=== PATIENT | female | born 1940 | race Caucasian/White ===

== ENCOUNTER → 2018-06-29 | Outpatient (CLI) | payer MEDICARE ==
[~2018-06-29] MED LIST: ASPIR 8181 MG PO; ATENOLOL-CHLOR1 EAC1 PO; GLIMEPIRIDE4 MG PO; LANSOPRAZOLE PO; LOVASTATIN40 MG PO; METFORMIN HCL1000 MG PO; PIOGLITAZONE30 MG PO; TYLENOL WITH C1 EACH PO
== END ==
LOC: RAD 09:28
PROVIDERS: ATTEND Internal Medicine
DX: R06.00 Dyspnea, unspecified (principal)
CPT/HCPCS: 93306

== ENCOUNTER → 2018-12-31 | Day surgery (SDC) | payer MEDICARE ==
[2018-12-30 13:20] LABS: BASOPHILS # (AUTO) 0.1 (0.0-0.1); BASOPHILS % 0.7 % (0.0-1.0); EOSINOPHILS # (AUTO) 0.2 (0.0-0.4); EOSINOPHILS % 2.3 % (0.0-6.0); HEMATOCRIT 45.5 % (34.2-44.1); HEMOGLOBIN 14.8 g/dL (12.0-16.0); LYMPHOCYTES # (AUTO) 3.2 (1.0-3.2); LYMPHOCYTES % 33.2 % (18.0-39.1); MEAN CORPUSCULAR HEMOGLOBIN 29.7 pg (28-32); MEAN CORPUSCULAR HGB CONC 32.5 g/dL (31-35); MEAN CORPUSCULAR VOLUME 91.2 fL (81-99); MONOCYTES # (AUTO) 0.9 (0.2-0.8); NEUTROPHILS # (AUTO) 5.2 (2.1-6.9); NEUTROPHILS % 54.4 % (38.7-80.0); PLATELET COUNT 323 x10e3/uL (140-360); RED BLOOD COUNT 4.99 x10e6/uL (3.6-5.1); RED CELL DISTRIBUTION WIDTH 13.8 % (11.7-14.4)
[~2018-12-31] MED LIST changes: +B COMPLEX1 EACH PO; +CRANBERRY200 MG PO; +DEXAMETHASONE SOD PHOS 10 MG/1 ML VIAL ONE; +FENTANYL CITRATE/PF 100MCG/2 ML INJ ONE; +FISH OIL 1,0001 EAC2 PO; +GABAPENTIN100 MG PO; +IOPAMIDOL 200 MG/ML 20 ML VIAL IT ONE; +LIDOCAINE HCL 1% 30ML-PF VIAL ONE; +LIDOCAINE HCL 2% LOCAL INJ 5 ML SDV VIAL INJ ONE; +MIDAZOLAM HCL 2 MG/2 ML VIAL ONE; +MULTIVITAMINS1 EAC7 PO; +PROPOFOL IV EMULSION 10 MG/ML 20 ML VIAL ONE
--- OUTSIDE RECORDS SUMMARY | 2018-12-31 05:29 | XMS REPORT | Continuity of Care Document ---
Author Author [facility] Organization [facility] Address [address] [place] [address] ;ext= Care Team Providers Care Websphere Portal Architect Name Role Phone ANTON JOHNSON Admphys ANTON JOHNSON Attphys Hospital Admission Diagnosis Code Admission Diagnosis Date Pleuritic pain Social History Element Description Code Description Smoking Status Code System Start Date End Date Smoking Status [id number] Never smoker SNOMED-CT Problems * No data in the system Medications RxNorm Medication Dose Route Instructions Indications Start Date End Date Status 188679 Acetaminophen 300 MG / Codeine Phosphate 30 MG Oral Tablet 1 tablet Oral orally every 4 to 6 hours as needed. pain Active Allergies Code Code System Allergy Substance Type Reaction Severity Start Date End Date Status RXNorm NKA Drug allergy Unknown Active Results Radiology Results Order: [id number] XR RIBS UNILATERAL/ PA CHEST* Exam Completion Date:01/28/2018 22:22 Procedure: XR HAND MIN 3VWS-left, XR RIBS UNILATERAL/ PA CHEST Order Balaji e: 01/28/2018 10:22 PMOrdering Provider: ZHOU Duinical Indication: C HEST PAIN: Pain-Chestfall. Left hand painComparison: None Findings: There is no displaced rib fracture. Lung volumes are low and there is mildbibasilar subsegme ntal atelectasis. No large pleural effusion is present. Nopneumothorax. Radiogra phs of the left hand demonstrate severe thumb CMC and triscaphe jointspace narro wing and degenerative spurring. Exym-dc-wvfzdnrp interphalangealjoint space narr owing is present. No definite acute fracture or focal osseousstructures is seen. IMPRESSION:No displaced rib fracture. 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 This final report was electronically signed by Dr Gavin Rodriguez MD 01/29/20186:2 6 AMDictated By: Molly RODRIGUEZ: 01/29/2018 06:32 Order: [id number] XR HAND MIN 3VWS* Exam Completion Date:01/28/2018 22:22 Procedure: XR HAND MIN 3VWS-left, XR RIBS UNILATERAL/ PA CHEST Order Balaji e: 01/28/2018 10:22 PMOrdering Provider: ZHOU Duinical Indication: C HEST PAIN: Pain-Chestfall. Left hand painComparison: None Findings: There is no displaced rib fracture. Lung volumes are low and there is mildbibasilar subsegme ntal atelectasis. No large pleural effusion is present. Nopneumothorax. Radiogra phs of the left hand demonstrate severe thumb CMC and triscaphe jointspace narro wing and degenerative spurring. Liph-li-wzgbzmff interphalangealjoint space narr owing is present. No definite acute fracture or focal osseousstructures is seen. IMPRESSION:No displaced rib fracture. 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 This final report was electronically signed by Dr Gavin Rodriguez MD 01/29/20186:2 6 AMDictated By: Molly RODRIGUEZ: 01/29/2018 06:32 Vital Signs Vitals Value Date BP Systolic 132 mmHg 01/28/2018 BP Diastolic 74 mmHg 01/28/2018 Respiratory Rate 18 01/28/2018 O2% BldC Oximetry 96 01/28/2018 Body Temperature 97 F 01/28/2018 Height 64 in 01/28/2018 Weight Measured 195 lbs 01/28/2018 BSA (Body Surface Area) 1.76875 01/28/2018 BMI (Body Mass Index) 33.7 01/28/2018 Plan of Care * No data in the system Procedures Code Code System Procedure Name Target Site Date of Procedure XR RIBS UNILATERAL/ PA CHEST 01/29/2018 06:32 Encounters Date Code Diagnosis Status (ICD10) - [id number] MX FX RIBS RT SIDE INITIAL CLOS FX Active Immunizations * No data in the system Functional Status * No data in the system Hospital Discharge Instructions * No data in the system
--- OUTSIDE RECORDS SUMMARY | 2018-12-31 05:29 | XMS REPORT ---
Author Author [facility] Address Unknown Phone Unavailable Care Team Providers Care Confidential Investigator Name Role Phone ARNOL JOHNSON Unavailable Unavailable Problems This patient has no known problems. Allergies, Adverse Reactions, Alerts This patient has no known allergies or adverse reactions. Medications This patient has no known medications. Results Test Description Test Time Test Comments Text Results Atomic Results Result Comments XR RIBS UNILATERAL/ PA CHEST 2018-01-29 06:32:42 Procedure: XR HAND MIN 3VWS- left, XR RIBS UNILATERAL/ PA CHESTOrder Date: 01/28/2018 10:22 PMOrdering Provider: ZHOU Duinical Indication: CHEST PAIN: Pain-Chestfall. Left hand painComparison: NoneFindings:There is no displaced rib fracture. Lung volumes are low and there is mildbibasilar subsegmental atelectasis. No large pleural effusion is present. Nopneumothorax.Radiographs of the left hand demonstrate severe thumb CMC and triscaphe jointspace narrowing and degenerative spurring. Blkv-qf-nvhkppid interphalangealjoint space narrowing is present. No definite acute fracture or focal osseousstructures is seen.IMPRESSION:No displaced rib fracture. 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 Left hand painComparison: NoneFindings:There is no displaced rib fracture. Lung volumes are low and there is mildbibasilar subsegmental atelectasis. No large pleural effusion is present. Nopneumothorax.Radiographs of the left hand demonstrate severe thumb CMC and triscaphe jointspace narrowing and degenerative spurring. Gmlr-bu-tfajvrlf interphalangealjoint space narrowing is present. No definite acute fracture or focal osseousstructures is seen.IMPRESSION:No displaced rib fracture. 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
[2018-12-31 08:15] VITALS: BP 178/80
== END | disposition home or self-care (01) ==
LOC: OR 05:26
PROVIDERS: ATTEND Physical Medicine & Rehabilitation Pain Medicine
DX: M47.26 Other spondylosis with radiculopathy, lumbar region (principal); M46.1 Sacroiliitis, not elsewhere classified; M25.512 Pain in left shoulder; G56.03 Carpal tunnel syndrome, bilateral upper limbs; E11.9 Type 2 diabetes mellitus without complications; I10 Essential (primary) hypertension; R00.1 Bradycardia, unspecified; K21.9 Gastro-esophageal reflux disease without esophagitis; Z01.810 Encounter for preprocedural cardiovascular examination; Z01.812 Encounter for preprocedural laboratory examination; Z79.84 Long term (current) use of oral hypoglycemic drugs; Z79.82 Long term (current) use of aspirin; Z91.81 History of falling
CPT/HCPCS: 36415; 64483; 64484 ×2; 85025; 93005; J1100; J2001 ×2; J2250; J2704; Q9967; 77003

== ENCOUNTER → 2019-10-28 | Outpatient (CLI) | payer MEDICARE ==
[~2019-10-28] MED LIST changes: -DEXAMETHASONE SOD PHOS 10 MG/1 ML VIAL ONE; -FENTANYL CITRATE/PF 100MCG/2 ML INJ ONE; -IOPAMIDOL 200 MG/ML 20 ML VIAL IT ONE; -LIDOCAINE HCL 1% 30ML-PF VIAL ONE; -LIDOCAINE HCL 2% LOCAL INJ 5 ML SDV VIAL INJ ONE; -MIDAZOLAM HCL 2 MG/2 ML VIAL ONE; -PROPOFOL IV EMULSION 10 MG/ML 20 ML VIAL ONE
--- NOTE | 2019-10-28 12:48 | Diagnostic Imaging Report ---
MRI SPINE LUMBAR WO HISTORY: Low back pain COMPARISON: MRI of the lumbar spine 03/07/2017 TECHNIQUE: Sagittal T1, sagittal T2, sagittal STIR, axial T2, coronal T2, and axial proton density weighted images of the lumbar spine were obtained without contrast. DISCUSSION: Number of non-rib bearing lumbar vertebral bodies: 5. Alignment: Normal lordosis. Thoracolumbar levoscoliosis is centered at L2. Vertebrae: No fractures, or neoplasm. Conus medullaris: Normal, ends at L2. Cauda equina: There is cauda equina effacement at L3-L4. Otherwise, no masses or arachnoiditis. Posterior paraspinal muscles: Posterior incision signal changes are present. There is paraspinal muscle atrophy at the lumbosacral junction. Soft tissues: Colonic diverticulosis is partially imaged. Multilevel advanced disc degeneration is present. There are nonspecific inflammatory endplate changes at L3-L4. T10-T11: At least moderate canal stenosis due to disc bulge and ligamentum flavum thickening with indentation of the cord. No significant foraminal stenosis. T11-T12: Disc bulge without significant canal or foraminal stenosis. T12-L1: Mild to moderate canal stenosis due to disc bulge and ligamentum flavum thickening. Mild right foraminal stenosis due to disc bulge and facet arthrosis. No significant left foraminal stenosis. L1-L2: Mild to moderate canal stenosis due to disc bulge and ligamentum flavum thickening. Moderate right foraminal stenosis due to disc bulge and facet arthrosis. L2-L3: Moderate canal stenosis due to disc bulge and ligamentum flavum thickening is accentuated by epidural lipomatosis. Moderate right and mild left foraminal stenoses due to disc bulge and facet arthrosis. L3-L4: Grade 1 anterolisthesis of L3 on L4 due to facet arthrosis. Severe canal stenosis due to uncovered disc bulge and ligamentum flavum thickening. Moderate to severe right and mild to moderate left foraminal stenoses due to uncovered disc bulge and facet arthrosis. L4-L5: Grade 1 anterolisthesis of L4 on L5 facet arthrosis. Laminectomy changes without significant central canal stenosis. Mild right and severe left foraminal stenoses due to uncovered disc bulge and facet arthrosis. L5-S1: Mild right and moderate left foraminal stenoses due to disc bulge and facet arthrosis. No significant canal stenosis. IMPRESSION: 1. Slightly progressed multilevel advanced disc degeneration with nonspecific inflammatory endplate changes at L3-L4 and thoracolumbar levoscoliosis. 2. Grade 1 anterolisthesis of L3 on L4 and L4 on L5 due to facet arthrosis. 3. 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 4. Multilevel degenerative foraminal stenoses - moderate to severe on the right at L3-L4 and severe on the left at L4-L5. Signed by: Dr. Abdias Baer M.D. on 10/28/2019 12:44 PM
== END ==
LOC: MRI 07:24
PROVIDERS: ATTEND Physical Medicine & Rehabilitation Pain Medicine
DX: M54.5 Low back pain (principal); M54.16 Radiculopathy, lumbar region
CPT/HCPCS: 72148

== ENCOUNTER → 2020-10-30 | Outpatient (CLI) | payer MEDICARE | LOC: RAD 11:58 | PROVIDERS: ATTEND Internal Medicine | DX: M25.561 Pain in right knee (principal); R22.0 Localized swelling, mass and lump, head | CPT/HCPCS: 70220 ==

== ENCOUNTER → 2021-01-11 | Outpatient (CLI) | payer MEDICARE | LOC: MRI 08:32 | PROVIDERS: ATTEND Physical Medicine & Rehabilitation Pain Medicine | DX: M25.552 Pain in left hip (principal); M25.551 Pain in right hip ==

== ENCOUNTER → 2021-09-03 | Outpatient (CLI) | payer MEDICARE | LOC: MRI 12:32 | PROVIDERS: ATTEND Internal Medicine | DX: M54.16 Radiculopathy, lumbar region (principal) | CPT/HCPCS: 72148 ==

== ENCOUNTER → 2022-02-07 | Outpatient (CLI) | payer MEDICARE | LOC: CARD 12:28 | PROVIDERS: ATTEND Internal Medicine | DX: R42 Dizziness and giddiness (principal) | CPT/HCPCS: 93880 ==